=== PATIENT | female | born 1965 | race Caucasian/White ===

== ENCOUNTER 2018-07-22 07:36 | Emergency (ER) | payer OTHER ==
[2018-07-22] MEDS: SOD CHLORIDE 0.9% 1,000 ML IV (08:38)
[2018-07-22] MEDS: KETOROLAC 30 MG INJ IV (08:40)
[2018-07-22] MEDS: DEXAMETHASONE 10 MG/ML 1 ML INJ IV (08:40)
[2018-07-22] MEDS: CEFTRIAXONE 1 GM/50 ML (PMX) 50 ML IVPB (08:41)
[2018-07-22 08:45] LABS: ADD MAN DIFF? NO
[2018-07-22 08:47] LABS: WHITE BLOOD COUNT 7.3 10^3/ul (4.8-10.8)
[2018-07-22 08:47] LABS: BASOPHIL # 0.1 10^3/ul (0.0-0.1); BASOPHILS % 0.7 % (0.0-2.0); EOSINOPHILS # 0.2 10^3/ul (0.0-0.5); HEMOGLOBIN 12.9 g/dl (12.0-16.0); LYMPHOCYTES % 27.4 % (15.0-51.0); MEAN CORPUSCULAR HEMOGLOBIN 31.5 pg (29.0-33.0); MEAN CORPUSCULAR HGB CONC 33.1 g/dl (32.0-37.0); MEAN CORPUSCULAR VOLUME 95.4 fl (82.0-101.0); MEAN PLATELET VOLUME 10.1 fl (7.4-10.4); MONOCYTE # 0.7 10^3/ul (0.3-0.9); MONOCYTES % 9.8 % (0.0-11.0); NEUTROPHIL # 4.4 10^3/ul (1.6-7.5); NEUTROPHILS % 59.8 % (39.0-77.0); PLATELET COUNT 308 10^3/UL (140-415); RED BLOOD COUNT 4.09 10^6/ul (4.20-5.40); RED CELL DISTRIBUTION WIDTH 12.8 % (11.5-14.5)
[2018-07-22 09:34] LABS: ALANINE AMINOTRANSFERASE 22 IU/L (13-69); ALBUMIN 4.3 g/dl (3.3-4.9); ALBUMIN/GLOBULIN RATIO 1.19; ALKALINE PHOSPHATASE 77 IU/L (42-121); ANION GAP 9 (5-13); ASPARTATE AMINO TRANSFERASE 23 IU/L (15-46); BILIRUBIN,INDIRECT 0.2 mg/dl (0-1.1); BILIRUBIN,TOTAL 0.2 mg/dl (0.2-1.3); BLOOD UREA NITROGEN 14 mg/dl (7-20); CALCIUM 9.6 mg/dl (8.4-10.2); CARBON DIOXIDE 29 mmol/L (21-31); CHLORIDE 103 mmol/L (97-110); CREATININE 0.54 mg/dl (0.44-1.00); Estimated GFR > 60 mL/min (>60); GLUCOSE 75 mg/dl (70-220); POTASSIUM 4.2 mmol/L (3.5-5.1); SODIUM 141 mmol/L (135-144); TOTAL PROTEIN 7.9 g/dl (6.1-8.1); URIC ACID 6.2 mg/dl (3.1-7.9)
[2018-07-22 10:03] LABS: ERYTHROCYTE SEDIMENTATION RATE 17 mm/Hr (0-30)
[2018-07-22 10:14] LABS: C-REACTIVE PROTEIN 0.7 mg/dl (0.0-0.9)
== END 2018-07-22 10:44 | disposition home or self-care (01) ==
LOC: FTE 07:36
DX: L03.011 Cellulitis of right finger (principal)
CPT/HCPCS: 36415; 73140; 80053; 84560; 85025; 85651; 86140; 96365; 96366; 96375; 99284-25

== ENCOUNTER 2018-07-25 07:53 | Emergency (ER) | payer OTHER | END 2018-07-25 09:30 | disposition home or self-care (01) | LOC: FTE 09:30 | DX: L03.113 Cellulitis of right upper limb (principal) | CPT/HCPCS: 99282 ==